=== PATIENT | male | born 1985 | race Hispanic/Latino ===

== ENCOUNTER 2020-04-09 09:18 | Emergency (ER) | payer OTHER | END 2020-04-09 11:08 | disposition home or self-care (01) | LOC: EDH 09:18 | DX: L03.213 Periorbital cellulitis (principal); F10.10 Alcohol abuse, uncomplicated; Z72.0 Tobacco use ==

== ENCOUNTER 2021-01-27 20:56 | Emergency (ER) | payer SELFPAY | END 2021-01-27 23:04 | disposition home or self-care (01) | LOC: EDH 20:56 | DX: J06.0 Acute laryngopharyngitis (principal); J01.90 Acute sinusitis, unspecified; Z20.822 Contact with and (suspected) exposure to COVID-19 | CPT/HCPCS: 71045; 87426; 87804 ×2; 87880; 99284; U0003 ==

== ENCOUNTER → 2022-05-01 | Outpatient (CLI) | payer MEDICAID | END | disposition home or self-care (01) | LOC: RAH 13:16 | PROVIDERS: ATTEND Family Medicine | DX: M54.50 Low back pain, unspecified (principal) | CPT/HCPCS: 72100 ==

== ENCOUNTER 2023-10-31 05:41 | Emergency (ER) | payer MEDICAID, OTHER ==
[~2023-10-31] VITALS: Ht 175.3 cm; Wt 90.7 kg
[2023-10-31] MEDS ORDERED: SUCCINYLCHOLINE CHLORIDE 20 MG/ML 10 ML VIAL IVP ONE (05:42)
[2023-10-31] MEDS ORDERED: ROCURONIUM BROMIDE 10MG/1ML 5ML VL IV ONE (05:42)
[2023-10-31] MEDS ORDERED: ETOMIDATE 20MG VIAL IVP ONE (05:42)
[2023-10-31] MEDS ORDERED: CEFTRIAXONE 1G VIAL 1 GM in 0.9%NACL 100ML 100 ML IV ONE (06:00)
[2023-10-31 06:14] LABS: BASOPHILS # (AUTO) 0.08 K/uL (0.00-0.20); BASOPHILS % (AUTO) 0.3 % (0.0-5.0); EOSINOPHILS # (AUTO) 0.01 K/uL (0.00-0.70); HEMATOCRIT 38.9 % (42-54); IMMATURE GRANULOCYTE ABSOLUTE 0.25 K/uL (0-1); LYMPHOCYTES # (AUTO) 1.7 K/uL (1.0-4.8); LYMPHOCYTES % (AUTO) 5.8 % (21.0-51.0); MEAN CORPUSCULAR HEMOGLOBIN 29.6 pg (27.0-33.0); MEAN CORPUSCULAR HGB CONC 35.7 g/dL (32.0-36.0); MEAN CORPUSCULAR VOLUME 82.9 fL (79-99); MONOCYTES % (AUTO) 6.9 % (3.0-13.0); NEUTROPHILS # (AUTO) 25.1 K/uL (1.8-7.7); NEUTROPHILS % (AUTO) 86.1 % (40.0-77.0); PLATELET COUNT (AUTO) 315 K/uL (130-400); RED BLOOD CELL COUNT(AUTO) 4.69 MIL/uL (4.50-6.20); RED CELL DISTRIBUTION WIDTH 11.6 % (11.0-15.5); WHITE BLOOD COUNT (AUTO) 29.2 K/uL (4.8-10.8)
[2023-10-31 06:16] VITALS: PULSE 100; O2SAT 99
[2023-10-31] MEDS: CLINDAMYCIN IVPB 600MG/50ML 50 ML IV ONE (06:17)
[2023-10-31] MEDS: DEXAMETHASONE SOD PHOSPHATE 4 MG/ML 1ML VIAL IVP ONE (06:17)
[2023-10-31] MEDS: 0.9%NACL 1000ML 3,000 ML IV ONE (06:18)
[2023-10-31] MEDS: PROPOFOL 1000 MG/100 ML 100 ML IV ONE (06:20)
[2023-10-31 06:24] LABS: INR 1.01 (0.85-1.15); PROTHROMBIN TIME 11.7 SEC (9.6-11.6)
[2023-10-31] MEDS: KETOROLAC 30MG VIAL (30MG/ML) IVP ONE (06:24)
[2023-10-31] MEDS: HYDROMORPHONE 1 MG INJ IVP ONE (06:26)
[2023-10-31] MEDS: ETOMIDATE 20MG VIAL IVP ONE ×2 (06:29→06:34)
[2023-10-31] MEDS ORDERED: PHARMACY COMMUNICATION MISC SCH (06:30)
[2023-10-31] MEDS: ROCURONIUM BROMIDE 10MG/1ML 5ML VL IV ONE (06:33)
[2023-10-31] MEDS: SUCCINYLCHOLINE CHLORIDE 20 MG/ML 10 ML VIAL IVP SCH (06:35)
[2023-10-31 06:42] LABS: ALBUMIN 3.3 g/dL (3.5-5.0); BILIRUBIN,TOTAL 0.5 mg/dL (0.2-1.0); POTASSIUM 3.2 mmol/L (3.5-5.1); TOTAL PROTEIN, SERUM 7.9 g/dL (6.0-8.3)
[2023-10-31 06:43] LABS: B-TYPE NATRIURETIC PEPTIDE 7 pg/mL (0-100)
[2023-10-31] MEDS: PROPOFOL 1000 MG/100 ML IV PRN (06:56)
[2023-10-31] MEDS: PROPOFOL 1000 MG/100 ML 100 ML IV SCH (06:57)
[2023-10-31] MEDS: CEFTRIAXONE 1G VIAL IVPB ONE (06:57)
[2023-10-31 07:22] LABS: APPEARANCE,URINE CLEAR (CLEAR); BILIRUBIN,URINE NEGATIVE (NEGATIVE); COLOR,URINE YELLOW (YELLOW); GLUCOSE, URINE (UA) TRACE mg/dL (NEGATIVE); KETONES,URINE 10 mg/dL (NEGATIVE); LEUKOCYTE ESTERASE ,URINE NEGATIVE Leu/uL (NEGATIVE); NITRATE,URINE NEGATIVE (NEGATIVE); PROTEIN,URINE 50 mg/dL (NEGATIVE); UROBILINOGEN,URINE 0.2 mg/dL (0.2-1.0)
[2023-10-31 07:25] LABS: ADD UA MICROSCOPIC YES
[2023-10-31] MEDS ORDERED: MIDAZOLAM HCL 50 MG in 0.9%NACL 50ML 50 ML IV SCH (07:30)
[2023-10-31 07:41] LABS: BACTERIA,URINE FEW /HPF (None Seen); MUCUS,URINE RARE LPF (None Seen)
[2023-10-31] MEDS: MIDAZOLAM 50MG-0.9% NS 50ML 50 ML IV SCH (08:15)
[2023-10-31 08:25] VITALS: PULSE 100; O2SAT 75
[2023-10-31] MEDS ORDERED: IOHEXOL-350 50ML VIAL IV ONE (09:00)
[2023-10-31 09:54] VITALS: PULSE 78; O2SAT 79
[2023-10-31 13:27] VITALS: BP 108/68; PULSE 85; RESP 20; O2SAT 98
== END 2023-10-31 13:37 | disposition short-term general hospital (02) ==
LOC: EDH 05:41
DX: J36 Peritonsillar abscess (principal); I10 Essential (primary) hypertension; R06.02 Shortness of breath; Z79.899 Other long term (current) drug therapy; Z98.890 Other specified postprocedural states
CPT/HCPCS: 82550; 84484; 80053; 83880; 85025; 85610; 85730; 87040 ×2; 87088; 83605; 81001; 36415; 71045; 70491; 96365; 96366; 99291; 99292; 96375; 94002; 31500; J1170; J0330; J7030; J3490 ×3; J0696; J2704 ×2; J1885; J1100; Q9967; A9900